=== PATIENT | male | born 1995 | race Caucasian/White ===

== ENCOUNTER 2024-10-13 12:52 | Emergency (ER) | payer SELFPAY ==
[2024-10-13] VITALS (8 sets, daily range): BP systolic 116–138; BP diastolic 64–82; BMI 17.1
[2024-10-13] MEDS: NSS 1000 IV ×2 (14:59→15:54)
[2024-10-13] MEDS: TORADOL 15 MG IV (15:01)
[2024-10-13 15:19] LABS: % Basophils 0.1 % (0-2); % Immature Granulocytes 0.5 % (0-0.5); % Lymphocytes 7.6 % (20.5-51.1); % Monocytes 9.4 % (1.7-9.3); % Neutrophils 82.4 % (42.2-75.2); Absolute Immature Granulocytes 0.1 10^3/uL (0-0.05); Absolute Lymphocytes 0.9 10^3/uL (1.2-3.4); Absolute Monocytes 1.1 10^3/uL (0.1-0.6); Absolute Neutrophils 9.3 10^3/uL (1.4-6.5); Hematocrit 31.7 % (39.0-52.0); Hemoglobin 10.9 g/dL (13.0-18.0); Mean Corp Hgb Conc. 34.4 g/dL (33.0-37.0); Mean Corpuscular Hgb 33.5 pg (27.0-31.0); Mean Corpuscular Volume 97.5 fL (80.0-94.0); Mean Platelet Volume 10.5 fL (7.4-10.4); Nucleated Red Blood Cells % 0 % (-); Platelet Count 224 10^3/uL (130-400); Red Blood Cell Count 3.25 10^6/uL (4.70-6.10); Red Cell Dist. Width 12.9 % (11.5-14.5); White Blood Cell Count 11.3 10^3/uL (4.8-10.8)
[2024-10-13 15:28] LABS: ALT (SGPT) 41 U/L (0-50); AST (SGOT) 60 U/L (17-59); Alkaline Phosphatase 65 U/L (38-126); Blood Urea Nitrogen 18 mg/dl (9-20); Calcium 9.7 mg/dl (8.4-10.2); Carbon Dioxide 21 mmol/L (22-30); Chloride 100 mmol/L (98-107); Estimated Creatinine Clearance 81 ml/min; Glucose 111 mg/dl (70-99); Potassium 4.6 mmol/L (3.5-5.1); Sodium 138 mmol/L (135-145); Total Bilirubin 1.5 mg/dl (0.2-1.3); Total Protein 6.9 g/dl (6.3-8.2); eGFR > 60.00
--- NOTE | 2024-10-13 15:46 | ED.GENMED ---
History of Present Illness
General
Chief Complaint: Flank Pain
Source: patient
Exam Limitations: none
Time Seen by Provider: 10/13/24 14:19
Nursing documentation reviewed up to this point in time: agreed with
History of Present Illness
History of Present Illness:
29-year-old male with no reported chronic medical issues who presents to the emergency department for evaluation of flank pain/abdominal pain associated with nausea and vomiting. Patient reports onset of symptoms early this morning�he says he woke
up in the middle of the night feeling very nauseated and had multiple episodes throughout the night of nonbloody emesis. He says that he has had associated intense right sided flank pain radiating towards the right groin/lower quadrant. No clear
triggering or relieving factors noted. He reports associated dark urine. He reports some mild lightheadedness. He denies any diarrhea or constipation. He denies any fever or chills. He denies having had similar symptoms in the past. He denies
prior surgical history.
Review of Systems
Review of Systems
All Other Systems: ROS reviewed and negative except as documented in HPI and ROS
Constitutional: Denies fever or chills
Respiratory: Denies trouble breathing
Cardiac: Denies chest pain
ABD/GI: Reports abdominal pain, nausea and vomiting; Denies diarrhea or constipated
: Reports flank pain and dark urine; Denies dysuria or frequency
Musculoskeletal: Denies neck pain
Neurological: Denies headache
Phy Exam
Physical Exam
Physical Exam:
General: Awake, alert, appears uncomfortable
Head: Normocephalic, atraumatic
Eyes: Conjunctiva normal
Throat: Airway intact, dry mucous membranes
Neck: Trachea midline, supple without meningismus
Lungs: Clear to auscultation bilaterally, no wheezing, rales, rhonchi
Heart: Tachycardia with regular rhythm, no murmurs, gallops, or rubs
Abd: Soft, non distended, tender to palpation right lower quadrant; no palpable hernia
Flank: No CVA tender
Neuro: No gross deficits
Extremities: Warm well-perfused
Scores
Heart Failure Risk
Heart Failure Risk Score: Not Applicable
Heart Score for Chest Pain Patients
STEMI patient?: Not applicable
Withdrawal Assessment of Alcohol
Withdrawal Assessment Completed?: Not applicable
Course
Orders/Labs/Results
Orders:
Orders
10/13/24 14:52
0.9% Sodium Chloride 1000 ml [Nss] 1,000 ml IV BOLUS
Ketorolac [Toradol] 15 mg IV NOW STA
10/13/24 14:55
Complete Blood Count/With Diff Urgent
Comprehensive Metabolic Panel Urgent
Lipase Urgent
Comment: ADD ON
Urinalysis Reflex To Culture Urgent
Date Specimen was Collected: 10/13/24
Time Specimen was Collected: 14:54
Urine Microscopic Reflex Cult Urgent
10/13/24 15:44
HYDROmorphone [Dilaudid] 0.5 mg IV NOW STA
10/13/24 15:45
CT Abd/pelvis W Iv Cont Urgent
Comment:
Reason For Exam: right flank pain
0.9% Sodium Chloride 1000 ml [Nss] 1,000 ml IV BOLUS
Ondansetron Injectable [Zofran] 4 mg IV NOW STA
10/13/24 15:50
Add On- LAB Urgent
Tests Added?: lipase
10/13/24 17:10
CT Chest W/o Iv Contrast Urgent
Comment:
Reason For Exam: R flank trauma
10/13/24 18:50
Type+Screen Urgent
Abnormal Lab Results
10/13/24
14:55
WBC 11.3 H 10^3/uL
(4.8-10.8)
RBC 3.25 L 10^6/uL
(4.70-6.10)
Hgb 10.9 L g/dL
(13.0-18.0)
Hct 31.7 L %
(39.0-52.0)
MCV 97.5 H fL
(80.0-94.0)
MCH 33.5 H pg
(27.0-31.0)
MPV 10.5 H fL
(7.4-10.4)
Abs Immat Gran (auto) 0.1 H 10^3/uL
(0-0.05)
Absolute Neuts (auto) 9.3 H 10^3/uL
(1.4-6.5)
Absolute Lymphs (auto) 0.9 L 10^3/uL
(1.2-3.4)
Absolute Monos (auto) 1.1 H 10^3/uL
(0.1-0.6)
Neutrophils % 82.4 H %
(42.2-75.2)
Lymphocytes % 7.6 L %
(20.5-51.1)
Monocytes % 9.4 H %
(1.7-9.3)
Carbon Dioxide 21 L mmol/L
(22-30)
Glucose 111 H mg/dl
(70-99)
Total Bilirubin 1.5 H mg/dl
(0.2-1.3)
AST 60 H U/L
(17-59)
Urine Ketones 3+ A
(Negative)
Ur Occult Blood Reflex 4+ A
(Negative)
Urine RBC 7-10 A /HPF
(0-2)
Urine Bacteria (Reflex) Few A
(Negative)
10/13/24 14:55
10/13/24 14:55
Vital Signs
Initial and Last Documented VS:
Initial Vital Signs
Temp Pulse Resp BP Pulse Ox
37.1 C 108 18 128/74 99
10/13/24 13:07 10/13/24 13:07 10/13/24 13:07 10/13/24 13:07 10/13/24 13:07
Last Documented Vital Signs
Temp Pulse Resp BP Pulse Ox
36.9 C 84 18 119/64 99
10/13/24 17:00 10/13/24 18:30 10/13/24 18:30 10/13/24 18:30 10/13/24 18:30
MDM/Problems Addressed
Differential Diagnosis Includes:
Nephrolithiasis, hernia, appendicitis, pancreatitis
MDM/Problems Addressed:
29-year-old male presents for evaluation of right flank/lower abdominal pain associated with nausea and vomiting started abruptly overnight. Tachycardic but otherwise normal vitals. Physical exam as above. Will place an IV send labs including a
CBC and a CMP. Check urinalysis. Will check CT abdomen pelvis. Provide IV fluids and pain control, antiemetic. Reassess after the above.
Initial labs reviewed: CBC shows leukocytosis 11.3, mild anemia to 10.9. CMP shows marginal AST elevation, marginal T. bili elevation. Added on lipase. Continue to monitor.
Urinalysis positive for blood but no bacteria. Awaiting CT.
CT called back by radiology: Patient has large right perinephric hematoma. No active extravasation noted. I had a long discussion with the patient�initially denying any trauma however after thoughtful consideration he says that when he was riding
home from work last night on a skateboard he fell off and he did hit his back on the curb although he did not initially have any pain or think that he had a serious injury. This seems like the most likely cause of this hematoma. Case discussed
with trauma team at [facility] will transfer to [place] to be admitted to trauma service. Added on CT chest. Fortunately he denies head trauma during fall has no signs of trauma to the head and no cervical spine tenderness. Monitor
pending transport.
*Critical Care Note
Total Time (30-74mins, 75-104mins- exclusive of procedures): Not Applicable
Patient Management
Discussion with other providers: Internet Specialist (Discussed with trauma surgery) and Radiologist (Discussed with radiologist)
Escalation/DeEscalation of care consider admission/obs:
Transfer to trauma center
ED Attending Note
-
Portions of this chart may have been created with voice recognition software.� Occasional wrong word or��sound alike� substitutions may have occurred due to the inherent limitations of voice recognition software.
Discharge Plan
Departure
Patient Disposition: Acute Care Hospital
Date of Disposition: 10/13/24
Time of Disposition: 17:18
Discharge Problem:
Perinephric hematoma, Acute blood loss anemia
Prescriptions:
No Action
cefadroxil [Duricef] 500 MG capsule
500 mg PO BID Qty: 20 0RF
Referrals:
NONE,* [Family Provider] -
Hospital Transfer
Other hospital: [place]
I certify that the patient requires transfer: Yes
Discussed case with accepting physician: Dr. Conway
Reason for transfer: availability of service
Interventions
Interventions:
*Risk Screen - Suicide Last Done: 10/13/24 13:07
*General Assessment Last Done: 10/13/24 13:07
*Neglect/Abuse Screening Last Done: 10/13/24 15:03
ED- Fall Risk Assessment Last Done: 10/13/24 15:03
*ED COVID-19 Vaccine History Last Done: 10/13/24 13:07
*Nursing Disposition Last Done: 10/13/24 19:06
AB-Niqoyq-Nzzrsgovnn Assessment Last Done: 10/13/24 15:03
ED-Male Genitourinary Assessment Last Done: 10/13/24 15:03
Discharge Date and Time
Discharge Date/Time: 10/13/24 19:08
Print Language: MACEDONIAN
[2024-10-13] MEDS: ZOFRAN 4 MG IV (15:53)
[2024-10-13] MEDS: DILAUDID 0.5 MG IV (15:53)
[2024-10-13 15:59] LABS: Urine Albumin Trace (Neg - Trace); Urine Bilirubin Negative (Negative); Urine Character Clear (Clear); Urine Color Yellow; Urine Glucose Negative (Negative); Urine Ketone 3+ (Negative); Urine Leukocyte Negative (Negative); Urine Nitrite Negative (Negative); Urine Occult Blood 4+ (Negative); Urine Specific Gravity 1.025 (<1.030); Urine Urobilinogen Negative (Neg - 1+)
[2024-10-13 16:11] LABS: Urine Mucus Few
[2024-10-13 16:12] LABS: Urine Hyaline Cast 0-2 /LPF (0-2)
[2024-10-13 16:13] LABS: Urine Bacteria Few (Negative)
[2024-10-13 16:36] LABS: Lipase 38 U/L (23-300)
--- NOTE | 2024-10-13 16:56 | CM ---
CM was consulted to discuss financial concerns. Patient is currently uninsured and expressed concern regarding potential bills. CM counseled patient regarding [facility] Patient financial services and patient assistance programs. CM further
counseled patient that [facility] will have a similar patient financial assistance program available to him. Patient and girlfriend understand and will follow up.
Patient is agreeable to transfer. CM updated ER physician.
--- NOTE | 2024-10-13 19:02 | EDRN ---
Pt transferred to [facility]
Accepting Dr Kamara
RN report to [facility].
== END 2024-10-13 19:08 | disposition short-term general hospital (02) ==
LOC: EMR 12:52
PROVIDERS: EMERGENCY PHYSICIAN Emergency Medicine
DX: S37.011A Minor contusion of right kidney, initial encounter (principal); D62 Acute posthemorrhagic anemia; V00.131A Fall from skateboard, initial encounter
CPT/HCPCS: 99285; 96374; 96375 ×2; 96361; 71250; 74177; 80053; 81003; 81015; 83690; 85025; 86850; 86900; 86901; Q9967